=== PATIENT | male | born 1955 | race Caucasian/White ===

== ENCOUNTER → 2022-02-27 | Outpatient (CLI) | payer MEDICARE ==
--- NOTE | 2022-02-27 15:55 | Diagnostic Imaging Report ---
Ribs/unilateral with chest INDICATION: Left-sided rib pain. COMPARISON: None available. TECHNIQUE: PA chest with 2 views of the left ribs. FINDINGS: No pleural effusion or pneumothorax. Lungs are clear. Normal heart size. No acute left-sided rib fracture. IMPRESSION: No left-sided rib fracture. Dictated by: Dictated on workstation # [id number]
--- NOTE | 2022-02-27 15:58 | Diagnostic Imaging Report ---
ANKLE, LEFT, 3 VIEWS COMPARISON: None available. INDICATION: Left ankle pain after fall TECHNIQUE: Non-weight bearing AP, oblique, and lateral views. FINDINGS: No fracture or traumatic malalignment. No osteochondral lesion of the talar dome. Well-corticated ossicle at the tip of the medial malleolus is indicative of old trauma. Tiny dorsal calcaneal spur. IMPRESSION: 1. No acute fracture or traumatic malalignment. Dictated by: Dictated on workstation # [id number]
== END ==
LOC: RAD 15:31
PROVIDERS: ATTEND Registered Nurse Critical Care Medicine
DX: S93.492A Sprain of other ligament of left ankle, initial encounter (principal); Y92.096 Garden or yard of other non-institutional residence as the place of occurrence of the external cause; W11.XXXA Fall on and from ladder, initial encounter; R07.81 Pleurodynia
CPT/HCPCS: 71101; 73610